=== PATIENT | female | born 1945 | race African-American/Black ===

== ENCOUNTER 2017-09-29 18:01 | Inpatient (IN) | payer MEDICARE, BC ==
[~2017-09-29] VITALS: Ht 149.9 cm; Wt 77.1 kg
[2017-09-29] MEDS ORDERED: DIAZEPAM 5 MG TABLET PO PRN (18:45)
[2017-09-29] MEDS ORDERED: DEXTROSE 50% WATER 50ML SYRINGE IV PRN (18:45)
[2017-09-29] MEDS ORDERED: CLONIDINE 0.1MG TABLET PO PRN (18:45)
[2017-09-29] MEDS ORDERED: NON FORMULARY PATIENT HOME MED EA XX SCH ×2 (18:45)
[2017-09-29 18:51] VITALS: BP 133/73
[2017-09-29 20:00] VITALS: BP 142/66
[2017-09-29] MEDS: BLOOD SUGAR DIAGNOSTIC STRIP TEST SCH (21:00)
[2017-09-29] MEDS: ATORVASTATIN CALCIUM 20MG TABLET PO SCH (22:23)
[2017-09-29] MEDS: AMLODIPINE 2.5MG TABLET PO SCH (22:24)
[2017-09-29] MEDS: SULFAMETHOXAZOLE/TRIMETHOPRIM 400/80MG TAB PO SCH (22:24)
[2017-09-29] MEDS: INSULIN LISPRO 100 UNITS/ML SUBCUT SCH (22:33)
[2017-09-29] MEDS: INSULIN GLARGINE UD 100 UNITS/ML SYR SUBCUT SCH (22:34)
[2017-09-30 02:00] VITALS: BP 139/52
[2017-09-30] MEDS: NAPHAZOLINE HCL/PHENIR MAL OPHTH SOLN 15ML OP PRN ×2 (04:44→10:59)
[2017-09-30 05:00] VITALS: BP 139/52
[2017-09-30 06:00] VITALS: BP 137/55
[2017-09-30 06:18] LABS: BASOPHILS % 0.4 % (0.0-2.0); EOSINOPHILS % 0.1 % (0.0-5.0); HEMATOCRIT. 44.2 % (36.0-48.0); HEMOGLOBIN. 15.2 g/dL (12.0-16.0); LYMPHOCYTES % 19.5 % (20.0-50.0); MEAN CORPUSCULAR HEMOGLOBIN 30.4 pg (28.0-32.0); MEAN CORPUSCULAR VOLUME 88.4 fL (81.0-99.0); MEAN PLATELET VOLUME 9.3 fl (7.4-10.4); PLATELET 265 x1000/uL (130-400); RED CELL DISTRIBUTION WIDTH 12.3 % (11.6-14.6)
[2017-09-30] MEDS: BLOOD SUGAR DIAGNOSTIC STRIP TEST SCH ×5 (06:37→21:38)
[2017-09-30] MEDS: INSULIN LISPRO 100 UNITS/ML SUBCUT SCH ×6 (06:38→21:57)
[2017-09-30 07:19] LABS: CHLORIDE 103 mEq/L (98-107)
[2017-09-30 08:08] VITALS: BP 147/64
[2017-09-30] MEDS: SULFAMETHOXAZOLE/TRIMETHOPRIM 400/80MG TAB PO SCH ×2 (08:23→21:37)
[2017-09-30] MEDS: HYDROCHLOROTHIAZIDE 25MG TABLET PO SCH (08:23)
[2017-09-30] MEDS: METFORMIN HCL 500MG TABLET PO SCH ×2 (08:23→17:01)
[2017-09-30] MEDS: LOSARTAN POTASSIUM 100 MG TABLET PO SCH (08:23)
[2017-09-30] MEDS: AMLODIPINE 2.5MG TABLET PO SCH ×2 (08:24→21:38)
[2017-09-30] MEDS: INSULIN GLARGINE UD 100 UNITS/ML SYR SUBCUT SCH ×2 (10:41→21:56)
[2017-09-30] MEDS ORDERED: DEXTROSE 50% WATER 50ML SYRINGE IV PRN (12:15)
[2017-09-30] MEDS: OMEPRAZOLE 20MG CAPSULE EXTENDED RELEASE PO SCH (13:06)
[2017-09-30] MEDS: METHYLPREDNISOLONE 4MG TABLET PO SCH ×2 (13:27→17:00)
[2017-09-30 20:00] VITALS: BP 133/55
[2017-09-30] MEDS ORDERED: METHYLPREDNISOLONE 4MG TABLET PO SCH (21:00)
[2017-09-30] MEDS: ATORVASTATIN CALCIUM 20MG TABLET PO SCH (21:37)
[2017-10-01 05:52] LABS: CLARITY URINE CLEAR (CLEAR); COLOR URINE YELLOW (YELLOW); KETONES URINE NEGATIVE (NEGATIVE); LEUKOCYTE ESTERASE URINE TRACE (NEGATIVE); NITRITE URINE NEGATIVE (NEGATIVE); OCCULT BLOOD URINE NEGATIVE (NEGATIVE); PROTEIN URINE NEGATIVE (NEGATIVE); SPECIFIC GRAVITY URINE 1.019 (1.005-1.030); UROBILINOGEN URINE 0.2 E.U./dL (0.2-1.0)
[2017-10-01] MEDS: OMEPRAZOLE 20MG CAPSULE EXTENDED RELEASE PO SCH (06:32)
[2017-10-01] MEDS: BLOOD SUGAR DIAGNOSTIC STRIP TEST SCH ×4 (06:32→21:28)
[2017-10-01] MEDS: INSULIN LISPRO 100 UNITS/ML SUBCUT SCH ×7 (06:33→22:30)
[2017-10-01] MEDS: NAPHAZOLINE HCL/PHENIR MAL OPHTH SOLN 15ML OP PRN ×2 (06:54→18:01)
[2017-10-01 08:00] VITALS: BP 136/60
[2017-10-01 08:53] LABS: T4 FREE 0.99 ng/dL (0.76-1.46)
[2017-10-01 09:03] LABS: FOLIC ACID (FOLATE) SERUM 18.6 ng/mL (>5.38)
[2017-10-01] MEDS: SULFAMETHOXAZOLE/TRIMETHOPRIM 400/80MG TAB PO SCH (09:52)
[2017-10-01] MEDS: LOSARTAN POTASSIUM 100 MG TABLET PO SCH (09:53)
[2017-10-01] MEDS: HYDROCHLOROTHIAZIDE 25MG TABLET PO SCH (09:53)
[2017-10-01] MEDS: METFORMIN HCL 500MG TABLET PO SCH ×2 (09:53→17:19)
[2017-10-01] MEDS: METHYLPREDNISOLONE 4MG TABLET PO SCH ×4 (09:54→21:28)
[2017-10-01] MEDS: AMLODIPINE 2.5MG TABLET PO SCH ×2 (09:54→21:34)
[2017-10-01] MEDS: ENOXAPARIN 40MG/0.4ML SYR SUBCUT SCH (09:54)
[2017-10-01] MEDS: INSULIN GLARGINE UD 100 UNITS/ML SYR SUBCUT SCH ×2 (10:27→22:30)
[2017-10-01 20:00] VITALS: BP 132/55
[2017-10-01] MEDS: SULFAMETHOXAZOLE/TRIMETHOPRIM 800/160MG TABLET PO SCH (21:25)
[2017-10-01] MEDS: ATORVASTATIN CALCIUM 20MG TABLET PO SCH (21:25)
[2017-10-02] MEDS: BLOOD SUGAR DIAGNOSTIC STRIP TEST SCH ×4 (05:51→21:40)
[2017-10-02] MEDS: OMEPRAZOLE 20MG CAPSULE EXTENDED RELEASE PO SCH (06:31)
[2017-10-02] MEDS: INSULIN LISPRO 100 UNITS/ML SUBCUT SCH ×7 (06:32→21:39)
[2017-10-02] MEDS: NAPHAZOLINE HCL/PHENIR MAL OPHTH SOLN 15ML OP PRN ×2 (06:50→16:06)
[2017-10-02 08:00] VITALS: BP 135/58
[2017-10-02] MEDS: AMLODIPINE 2.5MG TABLET PO SCH ×2 (08:08→21:34)
[2017-10-02] MEDS: SULFAMETHOXAZOLE/TRIMETHOPRIM 800/160MG TABLET PO SCH ×2 (08:08→21:33)
[2017-10-02] MEDS: HYDROCHLOROTHIAZIDE 25MG TABLET PO SCH (08:08)
[2017-10-02] MEDS: METFORMIN HCL 500MG TABLET PO SCH ×2 (08:08→18:29)
[2017-10-02] MEDS: METHYLPREDNISOLONE 4MG TABLET PO SCH ×2 (08:08→18:29)
[2017-10-02] MEDS: LOSARTAN POTASSIUM 100 MG TABLET PO SCH (08:09)
[2017-10-02] MEDS: ENOXAPARIN 40MG/0.4ML SYR SUBCUT SCH (08:09)
[2017-10-02] MEDS ORDERED: LACTULOSE 20G/30ML UDC PO PRN (10:15)
[2017-10-02] MEDS: DOCUSATE SODIUM 250MG CAPSULE PO SCH (10:55)
[2017-10-02] MEDS: INSULIN GLARGINE UD 100 UNITS/ML SYR SUBCUT SCH ×2 (11:36→21:51)
[2017-10-02 20:00] VITALS: BP 129/60
[2017-10-02] MEDS ORDERED: METHYLPREDNISOLONE 4MG TABLET PO SCH (21:00)
[2017-10-02] MEDS: OXYBUTYNIN CHLORIDE 5MG TABLET PO SCH (21:33)
[2017-10-02] MEDS: ATORVASTATIN CALCIUM 20MG TABLET PO SCH (21:33)
[2017-10-03] MEDS: NAPHAZOLINE HCL/PHENIR MAL OPHTH SOLN 15ML OP PRN (03:03)
[2017-10-03] MEDS: BLOOD SUGAR DIAGNOSTIC STRIP TEST SCH ×4 (06:06→21:35)
[2017-10-03] MEDS: INSULIN LISPRO 100 UNITS/ML SUBCUT SCH ×8 (06:06→21:35)
[2017-10-03 06:38] LABS: BASOPHILS % 0.6 % (0.0-2.0); EOSINOPHILS % 0.5 % (0.0-5.0); HEMATOCRIT. 43.1 % (36.0-48.0); HEMOGLOBIN. 14.9 g/dL (12.0-16.0); LYMPHOCYTES % 33.1 % (20.0-50.0); MEAN CORPUSCULAR HEMOGLOBIN 30.6 pg (28.0-32.0); MEAN CORPUSCULAR VOLUME 88.6 fL (81.0-99.0); MEAN PLATELET VOLUME 9.1 fl (7.4-10.4); MONOCYTES % 6.1 % (2.0-8.0); NEUTROPHILS % 59.7 % (40.0-76.0); PLATELET 298 x1000/uL (130-400); RED BLOOD CELL COUNT 4.87 mill/uL (4.2-5.4); RED CELL DISTRIBUTION WIDTH 12.6 % (11.6-14.6)
[2017-10-03 07:11] LABS: CHLORIDE 99 mEq/L (98-107)
[2017-10-03 08:00] VITALS: BP 128/62
[2017-10-03] MEDS ORDERED: NA PHOS,M-B/NA PHOS,DI-BA ENEMA 118ML PR NR (08:00)
[2017-10-03] MEDS: METFORMIN HCL 500MG TABLET PO SCH ×2 (08:22→17:16)
[2017-10-03] MEDS: AMLODIPINE 2.5MG TABLET PO SCH ×2 (08:22→20:36)
[2017-10-03] MEDS: METHYLPREDNISOLONE 4MG TABLET PO SCH ×2 (08:22→20:36)
[2017-10-03] MEDS: SULFAMETHOXAZOLE/TRIMETHOPRIM 800/160MG TABLET PO SCH ×2 (08:23→20:35)
[2017-10-03] MEDS: DOCUSATE SODIUM 250MG CAPSULE PO SCH (08:23)
[2017-10-03] MEDS: OXYBUTYNIN CHLORIDE 5MG TABLET PO SCH ×2 (08:23→20:35)
[2017-10-03] MEDS: FAMOTIDINE 20MG TABLET PO SCH (08:23)
[2017-10-03] MEDS: HYDROCHLOROTHIAZIDE 25MG TABLET PO SCH (08:23)
[2017-10-03] MEDS: LOSARTAN POTASSIUM 100 MG TABLET PO SCH (08:24)
[2017-10-03] MEDS: ENOXAPARIN 40MG/0.4ML SYR SUBCUT SCH (08:24)
[2017-10-03] MEDS: BISACODYL 10MG SUPP PR SCH (09:00)
[2017-10-03] MEDS: INSULIN GLARGINE UD 100 UNITS/ML SYR SUBCUT SCH ×2 (10:12→21:35)
[2017-10-03 20:00] VITALS: BP 115/50
[2017-10-03] MEDS: ATORVASTATIN CALCIUM 20MG TABLET PO SCH (20:35)
[2017-10-04] MEDS: BLOOD SUGAR DIAGNOSTIC STRIP TEST SCH ×4 (06:35→21:45)
[2017-10-04] MEDS: NAPHAZOLINE HCL/PHENIR MAL OPHTH SOLN 15ML OP PRN ×2 (06:37→18:32)
[2017-10-04] MEDS ORDERED: METHYLPREDNISOLONE 4MG TABLET PO SCH (07:00)
[2017-10-04 08:00] VITALS: BP 161/60
[2017-10-04] MEDS: OXYBUTYNIN CHLORIDE 5MG TABLET PO SCH ×2 (08:05→21:39)
[2017-10-04] MEDS: DOCUSATE SODIUM 250MG CAPSULE PO SCH (08:05)
[2017-10-04] MEDS: METFORMIN HCL 500MG TABLET PO SCH ×2 (08:05→17:16)
[2017-10-04] MEDS: FAMOTIDINE 20MG TABLET PO SCH (08:05)
[2017-10-04] MEDS: ENOXAPARIN 40MG/0.4ML SYR SUBCUT SCH (08:05)
[2017-10-04] MEDS: LOSARTAN POTASSIUM 100 MG TABLET PO SCH (08:06)
[2017-10-04] MEDS: AMLODIPINE 2.5MG TABLET PO SCH ×2 (08:06→21:39)
[2017-10-04] MEDS: HYDROCHLOROTHIAZIDE 25MG TABLET PO SCH (08:06)
[2017-10-04] MEDS: BISACODYL 10MG SUPP PR SCH (08:06)
[2017-10-04] MEDS: INSULIN LISPRO 100 UNITS/ML SUBCUT SCH ×7 (08:12→21:44)
[2017-10-04] MEDS ORDERED: NA PHOS,M-B/NA PHOS,DI-BA ENEMA 118ML PR PRN (09:00)
[2017-10-04] MEDS: INSULIN GLARGINE UD 100 UNITS/ML SYR SUBCUT SCH ×2 (10:47→21:45)
[2017-10-04 20:00] VITALS: BP 130/73
[2017-10-04] MEDS: ATORVASTATIN CALCIUM 20MG TABLET PO SCH (21:38)
[2017-10-05] MEDS: BLOOD SUGAR DIAGNOSTIC STRIP TEST SCH ×4 (06:07→21:14)
[2017-10-05] MEDS: NAPHAZOLINE HCL/PHENIR MAL OPHTH SOLN 15ML OP PRN (06:07)
[2017-10-05 08:00] VITALS: BP 142/66
[2017-10-05] MEDS: DOCUSATE SODIUM 250MG CAPSULE PO SCH (08:48)
[2017-10-05] MEDS: FAMOTIDINE 20MG TABLET PO SCH (08:50)
[2017-10-05] MEDS: METFORMIN HCL 500MG TABLET PO SCH ×2 (08:50→17:54)
[2017-10-05] MEDS: OXYBUTYNIN CHLORIDE 5MG TABLET PO SCH ×2 (08:50→21:13)
[2017-10-05] MEDS: AMLODIPINE 2.5MG TABLET PO SCH ×2 (08:51→21:14)
[2017-10-05] MEDS: HYDROCHLOROTHIAZIDE 25MG TABLET PO SCH (08:51)
[2017-10-05] MEDS: LOSARTAN POTASSIUM 100 MG TABLET PO SCH (08:51)
[2017-10-05] MEDS: ENOXAPARIN 40MG/0.4ML SYR SUBCUT SCH (08:52)
[2017-10-05] MEDS: INSULIN GLARGINE UD 100 UNITS/ML SYR SUBCUT SCH ×2 (10:00→21:16)
[2017-10-05] MEDS ORDERED: BISACODYL 10MG SUPP PR PRN (10:30)
[2017-10-05] MEDS: INSULIN LISPRO 100 UNITS/ML SUBCUT SCH ×5 (13:00→21:15)
[2017-10-05 15:32] LABS: CLARITY URINE CLEAR (CLEAR); COLOR URINE YELLOW (YELLOW); KETONES URINE NEGATIVE (NEGATIVE); LEUKOCYTE ESTERASE URINE TRACE (NEGATIVE); NITRITE URINE NEGATIVE (NEGATIVE); OCCULT BLOOD URINE NEGATIVE (NEGATIVE); PH URINE 5.5 (4.5-8.0); PROTEIN URINE NEGATIVE (NEGATIVE); SPECIFIC GRAVITY URINE 1.011 (1.005-1.030)
[2017-10-05 19:35] VITALS: BP 104/59
[2017-10-05] MEDS: ATORVASTATIN CALCIUM 20MG TABLET PO SCH (21:13)
[2017-10-05] MEDS: SULFAMETHOXAZOLE/TRIMETHOPRIM 800/160MG TABLET PO SCH (21:13)
[2017-10-05] MEDS: LIDOCAINE HCL 5% OINT 35GM/TUBE TOP SCH (21:14)
[2017-10-06] MEDS: BLOOD SUGAR DIAGNOSTIC STRIP TEST SCH ×4 (06:20→21:42)
[2017-10-06] MEDS: INSULIN LISPRO 100 UNITS/ML SUBCUT SCH ×5 (06:52→21:00)
[2017-10-06 08:17] VITALS: BP 115/51
[2017-10-06] MEDS ORDERED: ACETAMINOPHEN 325MG TABLET PO PRN (08:45)
[2017-10-06 09:07] LABS: BASOPHILS % 0.7 % (0.0-2.0); EOSINOPHILS % 2.4 % (0.0-5.0); HEMATOCRIT. 48.9 % (36.0-48.0); HEMOGLOBIN. 16.7 g/dL (12.0-16.0); LYMPHOCYTES % 26.2 % (20.0-50.0); MEAN CORPUSCULAR HEMOGLOBIN 30.5 pg (28.0-32.0); MEAN CORPUSCULAR VOLUME 89.2 fL (81.0-99.0); MEAN PLATELET VOLUME 8.8 fl (7.4-10.4); MONOCYTES % 6.9 % (2.0-8.0); NEUTROPHILS % 63.8 % (40.0-76.0); PLATELET 303 x1000/uL (130-400); RED BLOOD CELL COUNT 5.48 mill/uL (4.2-5.4); RED CELL DISTRIBUTION WIDTH 12.3 % (11.6-14.6)
[2017-10-06] MEDS: METFORMIN HCL 500MG TABLET PO SCH ×2 (09:07→17:22)
[2017-10-06] MEDS: FAMOTIDINE 20MG TABLET PO SCH (09:08)
[2017-10-06] MEDS: SULFAMETHOXAZOLE/TRIMETHOPRIM 800/160MG TABLET PO SCH ×2 (09:08→21:40)
[2017-10-06] MEDS: DOCUSATE SODIUM 250MG CAPSULE PO SCH (09:08)
[2017-10-06] MEDS: AMLODIPINE 2.5MG TABLET PO SCH ×2 (09:09→21:40)
[2017-10-06] MEDS: HYDROCHLOROTHIAZIDE 25MG TABLET PO SCH (09:09)
[2017-10-06] MEDS: OXYBUTYNIN CHLORIDE 5MG TABLET PO SCH ×2 (09:09→21:40)
[2017-10-06] MEDS: LOSARTAN POTASSIUM 100 MG TABLET PO SCH (09:09)
[2017-10-06] MEDS: ENOXAPARIN 40MG/0.4ML SYR SUBCUT SCH (09:10)
[2017-10-06] MEDS: LIDOCAINE HCL 5% OINT 35GM/TUBE TOP SCH (09:12)
[2017-10-06 09:18] LABS: CHLORIDE 98 mEq/L (98-107)
[2017-10-06 10:14] LABS: 25-HYDROXY VITAMIN D3 26 ng/mL (.)
[2017-10-06] MEDS ORDERED: LEVOFLOXACIN 500MG TABLET PO NR (10:15)
[2017-10-06] MEDS: INSULIN GLARGINE UD 100 UNITS/ML SYR SUBCUT SCH ×2 (10:18→22:00)
[2017-10-06] MEDS: NAPHAZOLINE HCL/PHENIR MAL OPHTH SOLN 15ML OP PRN (10:21)
[2017-10-06 20:00] VITALS: BP 139/61
[2017-10-06] MEDS: ATORVASTATIN CALCIUM 20MG TABLET PO SCH (21:40)
[2017-10-06] MEDS: DIAZEPAM 5 MG TABLET PO PRN (21:42)
[2017-10-07] MEDS: BLOOD SUGAR DIAGNOSTIC STRIP TEST SCH ×5 (06:26→21:35)
[2017-10-07 08:00] VITALS: BP 137/71
[2017-10-07] MEDS ORDERED: DEXTROSE 50% WATER 50ML SYRINGE IV PRN (08:15)
[2017-10-07] MEDS: LIDOCAINE HCL 5% OINT 35GM/TUBE TOP SCH (09:00)
[2017-10-07] MEDS: DOCUSATE SODIUM 250MG CAPSULE PO SCH (09:00)
[2017-10-07] MEDS: ENOXAPARIN 40MG/0.4ML SYR SUBCUT SCH (09:51)
[2017-10-07] MEDS: FAMOTIDINE 20MG TABLET PO SCH (09:52)
[2017-10-07] MEDS: OXYBUTYNIN CHLORIDE 5MG TABLET PO SCH ×2 (09:52→21:30)
[2017-10-07] MEDS: METFORMIN HCL 500MG TABLET PO SCH ×2 (09:52→17:22)
[2017-10-07] MEDS: AMLODIPINE 2.5MG TABLET PO SCH ×2 (09:53→21:00)
[2017-10-07] MEDS: LOSARTAN POTASSIUM 100 MG TABLET PO SCH (09:54)
[2017-10-07] MEDS: HYDROCHLOROTHIAZIDE 25MG TABLET PO SCH (09:54)
[2017-10-07] MEDS: SULFAMETHOXAZOLE/TRIMETHOPRIM 800/160MG TABLET PO SCH (09:54)
[2017-10-07] MEDS: INSULIN LISPRO 100 UNITS/ML SUBCUT SCH ×4 (10:11→21:46)
[2017-10-07] MEDS: LEVOFLOXACIN 250MG TABLET PO SCH (12:04)
[2017-10-07 20:00] VITALS: BP 117/52
[2017-10-07] MEDS: ATORVASTATIN CALCIUM 20MG TABLET PO SCH (21:30)
[2017-10-07] MEDS: DIAZEPAM 5 MG TABLET PO PRN (21:40)
[2017-10-07] MEDS ORDERED: DIAZEPAM 5 MG TABLET PO PRN (22:52)
[2017-10-08] MEDS: BLOOD SUGAR DIAGNOSTIC STRIP TEST SCH ×4 (05:46→21:22)
[2017-10-08] MEDS: INSULIN LISPRO 100 UNITS/ML SUBCUT SCH ×4 (05:48→21:21)
[2017-10-08] MEDS: NAPHAZOLINE HCL/PHENIR MAL OPHTH SOLN 15ML OP PRN (06:45)
[2017-10-08 07:11] LABS: BASOPHILS % 0.8 % (0.0-2.0); EOSINOPHILS % 2.7 % (0.0-5.0); HEMATOCRIT. 45.2 % (36.0-48.0); HEMOGLOBIN. 15.9 g/dL (12.0-16.0); LYMPHOCYTES % 30.9 % (20.0-50.0); MEAN CORPUSCULAR HEMOGLOBIN 31.3 pg (28.0-32.0); MEAN PLATELET VOLUME 8.9 fl (7.4-10.4); MONOCYTES % 6.6 % (2.0-8.0); PLATELET 267 x1000/uL (130-400); RED BLOOD CELL COUNT 5.08 mill/uL (4.2-5.4); RED CELL DISTRIBUTION WIDTH 12.4 % (11.6-14.6)
[2017-10-08 07:25] LABS: CHLORIDE 97 mEq/L (98-107)
[2017-10-08 08:00] VITALS: BP 106/57
[2017-10-08] MEDS: DOCUSATE SODIUM 250MG CAPSULE PO SCH (08:14)
[2017-10-08] MEDS: HYDROCHLOROTHIAZIDE 25MG TABLET PO SCH (08:14)
[2017-10-08] MEDS: FAMOTIDINE 20MG TABLET PO SCH (08:14)
[2017-10-08] MEDS: ENOXAPARIN 40MG/0.4ML SYR SUBCUT SCH (08:14)
[2017-10-08] MEDS: METFORMIN HCL 500MG TABLET PO SCH ×2 (08:14→17:11)
[2017-10-08] MEDS: OXYBUTYNIN CHLORIDE 5MG TABLET PO SCH ×2 (08:14→21:20)
[2017-10-08] MEDS: LIDOCAINE HCL 5% OINT 35GM/TUBE TOP SCH (08:14)
[2017-10-08] MEDS: LOSARTAN POTASSIUM 100 MG TABLET PO SCH (08:15)
[2017-10-08] MEDS: AMLODIPINE 2.5MG TABLET PO SCH ×2 (08:15→21:20)
[2017-10-08] MEDS: LEVOFLOXACIN 250MG TABLET PO SCH (10:46)
[2017-10-08] MEDS: INSULIN GLARGINE UD 100 UNITS/ML SYR SUBCUT SCH (14:51)
[2017-10-08] MEDS ORDERED: ERGOCALCIFEROL 50000UNITS CAPSULE PO SCH (18:00)
[2017-10-08 20:00] VITALS: BP 115/58
[2017-10-08] MEDS: ATORVASTATIN CALCIUM 20MG TABLET PO SCH (21:20)
[2017-10-08] MEDS ORDERED: IOHEXOL-300 100 ML BOTTLE ONE (22:30)
[2017-10-09] MEDS: NAPHAZOLINE HCL/PHENIR MAL OPHTH SOLN 15ML OP PRN (04:00)
[2017-10-09] MEDS: BLOOD SUGAR DIAGNOSTIC STRIP TEST SCH ×4 (06:39→21:08)
[2017-10-09] MEDS: INSULIN LISPRO 100 UNITS/ML SUBCUT SCH ×4 (06:55→21:12)
[2017-10-09 08:00] VITALS: BP 125/43
[2017-10-09] MEDS: FAMOTIDINE 20MG TABLET PO SCH (09:13)
[2017-10-09] MEDS: DOCUSATE SODIUM 250MG CAPSULE PO SCH (09:13)
[2017-10-09] MEDS: AMLODIPINE 2.5MG TABLET PO SCH ×2 (09:14→21:05)
[2017-10-09] MEDS: OXYBUTYNIN CHLORIDE 5MG TABLET PO SCH ×2 (09:14→21:05)
[2017-10-09] MEDS: HYDROCHLOROTHIAZIDE 25MG TABLET PO SCH (09:15)
[2017-10-09] MEDS: METFORMIN HCL 500MG TABLET PO SCH ×2 (09:15→17:46)
[2017-10-09] MEDS: LOSARTAN POTASSIUM 100 MG TABLET PO SCH (09:16)
[2017-10-09] MEDS: ENOXAPARIN 40MG/0.4ML SYR SUBCUT SCH (09:18)
[2017-10-09] MEDS: LIDOCAINE HCL 5% OINT 35GM/TUBE TOP SCH (09:19)
[2017-10-09] MEDS: INSULIN GLARGINE UD 100 UNITS/ML SYR SUBCUT SCH (10:02)
[2017-10-09] MEDS: LEVOFLOXACIN 250MG TABLET PO SCH (11:39)
[2017-10-09 20:00] VITALS: BP 122/46
[2017-10-09] MEDS: ATORVASTATIN CALCIUM 20MG TABLET PO SCH (21:05)
[2017-10-10] MEDS: BLOOD SUGAR DIAGNOSTIC STRIP TEST SCH ×4 (06:29→21:07)
[2017-10-10] MEDS: INSULIN LISPRO 100 UNITS/ML SUBCUT SCH ×4 (07:19→21:13)
[2017-10-10] MEDS: NAPHAZOLINE HCL/PHENIR MAL OPHTH SOLN 15ML OP PRN (07:20)
[2017-10-10 08:00] VITALS: BP 112/63
[2017-10-10] MEDS: LIDOCAINE HCL 5% OINT 35GM/TUBE TOP SCH (08:17)
[2017-10-10] MEDS: ENOXAPARIN 40MG/0.4ML SYR SUBCUT SCH (08:18)
[2017-10-10] MEDS: DOCUSATE SODIUM 250MG CAPSULE PO SCH (08:18)
[2017-10-10] MEDS: OXYBUTYNIN CHLORIDE 5MG TABLET PO SCH ×2 (08:18→21:05)
[2017-10-10] MEDS: AMLODIPINE 2.5MG TABLET PO SCH ×2 (08:18→21:05)
[2017-10-10] MEDS: FAMOTIDINE 20MG TABLET PO SCH (08:18)
[2017-10-10] MEDS: LOSARTAN POTASSIUM 100 MG TABLET PO SCH (08:18)
[2017-10-10] MEDS: HYDROCHLOROTHIAZIDE 25MG TABLET PO SCH (08:18)
[2017-10-10] MEDS: METFORMIN HCL 500MG TABLET PO SCH ×2 (08:18→17:38)
[2017-10-10] MEDS: LEVOFLOXACIN 250MG TABLET PO SCH (10:45)
[2017-10-10] MEDS: INSULIN GLARGINE UD 100 UNITS/ML SYR SUBCUT SCH ×2 (10:46→21:14)
[2017-10-10 20:00] VITALS: BP 138/49
[2017-10-10] MEDS: ATORVASTATIN CALCIUM 20MG TABLET PO SCH (21:04)
[2017-10-11] MEDS: NAPHAZOLINE HCL/PHENIR MAL OPHTH SOLN 15ML OP PRN (06:16)
[2017-10-11] MEDS: BLOOD SUGAR DIAGNOSTIC STRIP TEST SCH ×4 (06:20→20:51)
[2017-10-11] MEDS: INSULIN LISPRO 100 UNITS/ML SUBCUT SCH ×4 (06:54→21:33)
[2017-10-11 08:17] VITALS: BP 132/55
[2017-10-11] MEDS: FAMOTIDINE 20MG TABLET PO SCH (09:13)
[2017-10-11] MEDS: LOSARTAN POTASSIUM 100 MG TABLET PO SCH (09:13)
[2017-10-11] MEDS: AMLODIPINE 2.5MG TABLET PO SCH ×2 (09:14→20:51)
[2017-10-11] MEDS: OXYBUTYNIN CHLORIDE 5MG TABLET PO SCH ×2 (09:14→20:51)
[2017-10-11] MEDS: HYDROCHLOROTHIAZIDE 25MG TABLET PO SCH (09:14)
[2017-10-11] MEDS: METFORMIN HCL 500MG TABLET PO SCH ×2 (09:14→17:31)
[2017-10-11] MEDS: DOCUSATE SODIUM 250MG CAPSULE PO SCH (09:14)
[2017-10-11] MEDS: ENOXAPARIN 40MG/0.4ML SYR SUBCUT SCH (09:15)
[2017-10-11] MEDS: LIDOCAINE HCL 5% OINT 35GM/TUBE TOP SCH (09:16)
[2017-10-11] MEDS: LEVOFLOXACIN 250MG TABLET PO SCH (10:26)
[2017-10-11] MEDS: INSULIN GLARGINE UD 100 UNITS/ML SYR SUBCUT SCH ×2 (10:27→21:32)
[2017-10-11 20:00] VITALS: BP 122/55
[2017-10-11] MEDS: ATORVASTATIN CALCIUM 20MG TABLET PO SCH (20:51)
[2017-10-12] MEDS: BLOOD SUGAR DIAGNOSTIC STRIP TEST SCH ×4 (06:28→21:08)
[2017-10-12] MEDS: INSULIN LISPRO 100 UNITS/ML SUBCUT SCH ×4 (06:32→21:17)
[2017-10-12 07:28] LABS: CHLORIDE 94 mEq/L (98-107)
[2017-10-12 07:41] LABS: BASOPHILS % 0.8 % (0.0-2.0); EOSINOPHILS % 2.5 % (0.0-5.0); HEMATOCRIT. 44.6 % (36.0-48.0); HEMOGLOBIN. 15.5 g/dL (12.0-16.0); LYMPHOCYTES % 30.5 % (20.0-50.0); MEAN CORPUSCULAR HEMOGLOBIN 30.6 pg (28.0-32.0); MEAN CORPUSCULAR VOLUME 87.8 fL (81.0-99.0); MEAN PLATELET VOLUME 9.5 fl (7.4-10.4); MONOCYTES % 5.6 % (2.0-8.0); NEUTROPHILS % 60.6 % (40.0-76.0); PLATELET 241 x1000/uL (130-400); RED BLOOD CELL COUNT 5.08 mill/uL (4.2-5.4); RED CELL DISTRIBUTION WIDTH 12.2 % (11.6-14.6)
[2017-10-12 08:00] VITALS: BP 121/51
[2017-10-12] MEDS: DOCUSATE SODIUM 250MG CAPSULE PO SCH (08:13)
[2017-10-12] MEDS: FAMOTIDINE 20MG TABLET PO SCH (08:13)
[2017-10-12] MEDS: METFORMIN HCL 500MG TABLET PO SCH ×2 (08:13→17:02)
[2017-10-12] MEDS: OXYBUTYNIN CHLORIDE 5MG TABLET PO SCH ×2 (08:14→21:12)
[2017-10-12] MEDS: AMLODIPINE 2.5MG TABLET PO SCH ×2 (08:14→21:00)
[2017-10-12] MEDS: HYDROCHLOROTHIAZIDE 25MG TABLET PO SCH (08:14)
[2017-10-12] MEDS: LOSARTAN POTASSIUM 100 MG TABLET PO SCH (08:15)
[2017-10-12] MEDS: ENOXAPARIN 40MG/0.4ML SYR SUBCUT SCH (08:16)
[2017-10-12] MEDS: LEVOFLOXACIN 250MG TABLET PO SCH (10:38)
[2017-10-12] MEDS: INSULIN GLARGINE UD 100 UNITS/ML SYR SUBCUT SCH ×2 (10:40→21:16)
[2017-10-12] MEDS: LIDOCAINE HCL 5% OINT 35GM/TUBE TOP SCH (10:42)
[2017-10-12] MEDS: NAPHAZOLINE HCL/PHENIR MAL OPHTH SOLN 15ML OP PRN (10:42)
[2017-10-12 20:00] VITALS: BP 101/64
[2017-10-12] MEDS: ATORVASTATIN CALCIUM 20MG TABLET PO SCH (21:12)
[2017-10-13] MEDS: BLOOD SUGAR DIAGNOSTIC STRIP TEST SCH (05:46)
[2017-10-13] MEDS: INSULIN LISPRO 100 UNITS/ML SUBCUT SCH (06:45)
[2017-10-13 08:00] VITALS: BP 135/65
[2017-10-13] MEDS: METFORMIN HCL 500MG TABLET PO SCH (08:42)
[2017-10-13] MEDS: OXYBUTYNIN CHLORIDE 5MG TABLET PO SCH (08:42)
[2017-10-13] MEDS: LOSARTAN POTASSIUM 100 MG TABLET PO SCH (08:43)
[2017-10-13] MEDS: FAMOTIDINE 20MG TABLET PO SCH (08:43)
[2017-10-13] MEDS: AMLODIPINE 2.5MG TABLET PO SCH (08:43)
[2017-10-13] MEDS: HYDROCHLOROTHIAZIDE 25MG TABLET PO SCH (08:43)
[2017-10-13] MEDS: DOCUSATE SODIUM 250MG CAPSULE PO SCH (08:43)
[2017-10-13] MEDS: NAPHAZOLINE HCL/PHENIR MAL OPHTH SOLN 15ML OP PRN (08:44)
[2017-10-13] MEDS: LIDOCAINE HCL 5% OINT 35GM/TUBE TOP SCH (08:44)
[2017-10-13] MEDS: ENOXAPARIN 40MG/0.4ML SYR SUBCUT SCH (08:45)
[2017-10-13 09:18] VITALS: BP 135/65
[2017-10-13] MEDS: LEVOFLOXACIN 250MG TABLET PO SCH (10:29)
[2017-10-13] MEDS: INSULIN GLARGINE UD 100 UNITS/ML SYR SUBCUT SCH (10:38)
== END 2017-10-13 12:00 | disposition home health service (06) | DRG 552 ==
PROVIDERS: ADMIT Physical Medicine & Rehabilitation Spinal Cord Injury Medicine; ATTEND Specialist
PROC: 0HBNXZZ Excision of Left Foot Skin, External Approach (ICD-10-PCS; principal; 2017-10-09)
DX: M48.02 Spinal stenosis, cervical region (principal); E44.0 Moderate protein-calorie malnutrition; E11.42 Type 2 diabetes mellitus with diabetic polyneuropathy; E11.65 Type 2 diabetes mellitus with hyperglycemia; G82.20 Paraplegia, unspecified; N39.0 Urinary tract infection, site not specified; E78.00 Pure hypercholesterolemia, unspecified; I10 Essential (primary) hypertension; M48.061 Spinal stenosis, lumbar region without neurogenic claudication; M79.609 Pain in unspecified limb; R53.81 Other malaise; R26.9 Unspecified abnormalities of gait and mobility; M54.5 Low back pain; M54.2 Cervicalgia; E66.9 Obesity, unspecified; N61.0 Mastitis without abscess; Z68.34 Body mass index [BMI] 34.0-34.9, adult; N61.1 Abscess of the breast and nipple; F41.9 Anxiety disorder, unspecified; E78.5 Hyperlipidemia, unspecified; R32 Unspecified urinary incontinence; F41.1 Generalized anxiety disorder; L60.0 Ingrowing nail; L03.032 Cellulitis of left toe; B96.20 Unspecified Escherichia coli [E. coli] as the cause of diseases classified elsewhere; E55.9 Vitamin D deficiency, unspecified; M46.90 Unspecified inflammatory spondylopathy, site unspecified; F32.9 Major depressive disorder, single episode, unspecified; N39.41 Urge incontinence; R35.0 Frequency of micturition; M79.676 Pain in unspecified toe(s); R20.0 Anesthesia of skin; R39.15 Urgency of urination; R41.89 Other symptoms and signs involving cognitive functions and awareness; Z98.49 Cataract extraction status, unspecified eye; Z88.6 Allergy status to analgesic agent; Z87.820 Personal history of traumatic brain injury; Z91.81 History of falling; Z87.828 Personal history of other (healed) physical injury and trauma; Z83.3 Family history of diabetes mellitus
CPT/HCPCS: 36415; 70551; 72141; 72146; 72148; 74177; 76830; 76856; 80048; 80053; 80061; 81003; 82306; 82607; 82746; 82962; 83036; 84134; 84439; 84443; 84481; 84630; 85025; 87077; 87086; 87186; 92523; 93970; 97110; 97112; 97116; 97162; 97166; 97530; 97535; A6261; C1893; G0515; J1650; J1815; J7509; Q9967